=== PATIENT | male | born 1945 ===

== ENCOUNTER 2019-06-12 21:40 | Emergency (ER) ==
--- NOTE | 2019-06-12 22:47 | RADIOLOGY REPORT (SQ) ---
EXAM DESCRIPTION: XR CHEST 1 VIEW COMPLETED DATE/TME: 06/12/2019 21:55 CLINICAL HISTORY: 73 years, Male, DIFFICULTY BREATHING COMPARISON: None. NUMBER OF VIEWS: 1 TECHNIQUE: Portable chest LIMITATIONS: None. FINDINGS: Heart size is normal. Osteopenia. COPD. Left-sided pacing device. No pneumothorax. Lungs are clear IMPRESSION: COPD. Lungs are clear copyright 2011 [facility] [employer]- All Rights Reserved
--- NOTE | 2019-06-13 06:40 | EKG REPORT ---
SEVERITY:- ABNORMAL ECG - SINUS RHYTHM INFERIOR INFARCT, AGE INDETERMINATE : Confirmed by: Luis Gaines MD 13-Jun-2019 06:39:01
== END 2019-06-12 23:28 | disposition left against medical advice (07) ==
LOC: ER 21:40
DX: Z53.21 Procedure and treatment not carried out due to patient leaving prior to being seen by health care provider (principal)
CPT/HCPCS: 71045